=== PATIENT | female | born 1985 | race Two or more races ===

== ENCOUNTER 2017-11-07 17:34 | Emergency (ER) | payer SELFPAY ==
[~2017-11-07] VITALS: Ht 152.4 cm; Wt 68.9 kg
[2017-11-07 17:52] VITALS: BP 120/85
--- NOTE | 2017-11-07 18:56 | Emergency Room Report ---
History of Present Illness General Chief Complaint: Flu Like Symptoms Source: Patient Present Illness HPI 32-year-old female presents to the emergency department complaining of nonproductive cough, body aches, nasal congestion, rhinorrhea x1.5 weeks. Patient reports multiple coworkers with similar symptoms. Patient states that onset she had subjective fevers and chills however that has resolved. Denies neck pain, stiffness or photophobia. She reports frequent and persistent dry cough that has begun to exacerbate rib cage pain that is 6/10 in severity during episodes of coughing only. Reports hx of bronchitis. Denies high fevers , lethargy, irritability, dehydration, N/V/D. Denies Cp, Palpitations, LOC, AMS , seizures, paresthesias, or changes in Hearing or vision, no Sudden severe ARRIAGA. Allergies: Coded Allergies: No Known Allergies (Unverified , 11/07/17) Patient History Past Medical History: see triage record Past Surgical History: none Pertinent Family History: none Last Menstrual Period: 10/25/17 Reviewed Nursing Documentation: PMH: Agreed, PSxH: Agreed Nursing Documentation-PMH Past Medical History: No Stated History Review of Systems All Other Systems: negative except mentioned in HPI Physical Exam Vital Signs Date Time Temp Pulse Resp B/P (MAP) Pulse Ox O2 Delivery O2 Flow Rate FiO2 11/07/17 17:40 98.4 99 18 120/85 99 Room Air Sp02 EP Interpretation: reviewed, normal General Appearance: no apparent distress, alert, GCS 15, non-toxic Head: normocephalic, atraumatic Eyes: bilateral eye normal inspection, bilateral eye PERRL ENT: hearing grossly normal, normal voice, TMs + canals normal, uvula midline, moist mucus membranes, nasal congestion, pharyngeal erythema Neck: full range of motion, no meningismus, no bony tend Respiratory: chest non-tender, lungs clear, normal breath sounds, speaking full sentences Cardiovascular #1: regular rate, rhythm Gastrointestinal: non tender, soft Rectal: deferred Genitourinary: normal inspection Musculoskeletal: back normal, gait/station normal, normal range of motion, non- tender Neurologic: alert, oriented x3, responsive, motor strength/tone normal, sensory intact, speech normal, grossly normal Psychiatric: judgement/insight normal Skin: normal color, no rash, warm/dry, well hydrated Lymphatic: no adenopathy Medical Decision Making PA Attestation Dr. Kaba is my supervising Physician whom patient management has been discussed with. Diagnostic Impression: Primary Impression: URI (upper respiratory infection) Qualified Codes: J06.9 - Acute upper respiratory infection, unspecified ER Course 32-year-old female presents to the emergency department complaining of nonproductive cough, body aches, nasal congestion, rhinorrhea x1.5 weeks. Patient reports multiple coworkers with similar symptoms. Patient states that onset she had subjective fevers and chills however that has resolved. Denies neck pain, stiffness or photophobia. She reports frequent and persistent dry cough that has begun to exacerbate rib cage pain that is 6/10 in severity during episodes of coughing only. Reports hx of bronchitis. Denies high fevers , lethargy, irritability, dehydration, N/V/D. Denies Cp, Palpitations, LOC, AMS , seizures, paresthesias, or changes in Hearing or vision, no Sudden severe ARRIAGA. Ddx considered but are not limited to URI, pneumonia, PE, strep pharyngitis, meningitis. Vital signs: Pt. is afebrile, the remaining VS are WNL H&PE are most consistent with URI- no meningeal signs, oropharynx is not involved, no evidence of bacterial infection at this time. cardiac pathology is low suspicion as pt. pain is reproducible only with coughing, and pt. has no cardiac RF's. ORDERS: none required at this time, the diagnosis is clinical ED INTERVENTIONS: None required at this time. DISCHARGE: At this time pt. is stable for d/c to home. Will provide printed patient care instructions, and any necessary prescriptions. Care plan and follow up instructions have been discussed with the patient prior to discharge. Last Vital Signs Date Time Temp Pulse Resp B/P (MAP) Pulse Ox O2 Delivery O2 Flow Rate FiO2 11/07/17 17:52 99 18 Room Air 11/07/17 17:52 98.4 120/85 99 Disposition: HOME, SELF-CARE Condition: Stable Scripts Acetaminophen* (TYLENOL EXTRA STRENGTH*) 500 Mg Tablet 500 MG ORAL Q6H Y for Mild Pain/Temp > 100.5, #20 TAB 0 Refills Prov: Catherine Alas P.A. 11/07/17 Albuterol Sulfate* (ALBUTEROL SULFATE MDI*) 8.5 Gm Hfa.aer.ad 2 PUFF INH Q3H, #1 INH 0 Refills Prov: Catherine Alas 11/07/17 Guaifenesin (Guaifenesin) 1,200 Mg Tab.er.12h 1200 MG PO BID, #20 TAB Prov: Catherine Alas 11/07/17 Codeine/Promethazine Hcl* (PROMETHAZINE-CODEINE SYRUP*) 118 Ml Syrup 5 ML ORAL Q6H Y for For Cough, #118 ML 0 Refills Prov: Catherine Alas 11/07/17 Patient Instructions: Upper Respiratory Infection, Adult, [id number] Additional Instructions: Take medications as directed. Follow up with a Primary Care Provider in 3-5 days, even if your symptoms have resolved. --Please review list of primary care clinics, if you do not already have a primary care provider Return sooner to ED if new symptoms occur, or current symptoms become worse. Do not drink alcohol, drive, or operate heavy machinery while taking Cough Syrup as this may cause drowsiness. - Please note that this Emergency Department Report was dictated using [employer] radiation technology software, occasionally this can lead to erroneous entry secondary to interpretation by the dictation equipment. Catherine Alas Nov 07, 2017 18:56
[2017-11-07] MEDS ORDERED: PROMETHAZINE-C118 M1 ORAL (18:58)
[2017-11-07] MEDS ORDERED: ALBUTEROL SULF8.5 GM INH (18:58)
[2017-11-07] MEDS ORDERED: TYLENOL EXTRA500 MG ORAL (18:58)
[2017-11-07] MEDS ORDERED: GUAIFENESIN1200 MG PO (18:58)
[2017-11-07 19:04] VITALS: BP 120/85
== END 2017-11-07 19:04 | disposition home or self-care (01) ==
LOC: EMR 17:53
DX: J06.9 Acute upper respiratory infection, unspecified (principal)
CPT/HCPCS: 99284